=== PATIENT | female | born 1955 | race Caucasian/White ===

== ENCOUNTER → 2016-11-16 | Outpatient (CLI) | payer OTHER ==
--- NOTE | 2016-11-16 17:29 | DIAGNOSTIC IMAGING REPORT ---
CERVICAL WITHOUT CONTRAST HISTORY: Pain OSTEOARTHRITIS OF SPINE W/C ERV RADICULOPATHY TECHNIQUE: Multiplanar multisequence MRI of the cervical spine was performed without the use of contrast. COMPARISON STUDY: None. FINDINGS: Considerable degenerative disc change throughout the entire cervical region. Slight grade 1 anterolisthesis C3 on C4 felt to be physiologic. Maximum anterolisthesis is approximately 2 mm. Degenerative change of the vertebral endplates. Heterogeneous bone marrow signal characteristics suggesting degenerative and age-related change. C2-C3: Minimal disc bulge C3-C4: Mild broad-based disc herniation with minimal impact anterior cervical cord. Significant narrowing right and to lesser extent left neural foramina. C4-C5: Broad-based bulging disc with considerable osteophytic narrowing bilaterally of the neuroforamina. C5-C6: Minimal disc bulge. Moderate narrowing of the right and to lesser extent left neural foramina on osteophytic bases. C6-C7: Considerable osteophytic narrowing left neuroforamina. Minimal narrowing on the right. No significant impact upon the cervical cord. C7-T1: No significant central canal or neural foraminal narrowing. IMPRESSION: 1. Considerable degenerative disc change throughout the entire cervical region. 2. Multilevel bulging disc components as described. 3. Multilevel foraminal narrowing most significant on the right at C3-C4, bilaterally at C4-C5, and the left at C6-C7. The above report was generated using voice recognition software. It may contain grammatical, syntax or spelling errors. Electronically signed by: Seferino Denton M.D. 11/16/2016 5:28 PM Dictated Date/Time: 11/16/2016 5:21 PM
== END | disposition home or self-care (01) ==
LOC: C.MRI 16:16
PROVIDERS: ATTEND Internal Medicine
DX: M47.22 Other spondylosis with radiculopathy, cervical region (principal); M50.20 Other cervical disc displacement, unspecified cervical region